=== PATIENT | female | born 1985 | race Caucasian/White ===

== ENCOUNTER 2017-01-06 11:56 | Inpatient (IN) | payer OTHER ==
[~2017-01-06] VITALS: Ht 172.7 cm; Wt 83.5 kg
[2017-01-06 13:30] VITALS: BP 119/67
[2017-01-06 13:41] LABS: BILIRUBIN NEGATIVE (NEGATIVE); BLOOD NEGATIVE (NEGATIVE); CLARITY SL CLOUDY (CLEAR); COLOR YELLOW (YELLOW); GLUCOSE NEGATIVE (NEGATIVE); KETONE TRACE (NEGATIVE); LEUKO ESTERASE 1+ (NEGATIVE); NITRITE NEGATIVE (NEGATIVE); SPECIFIC GRAVITY 1.025 (1.005-1.030); UROBILINOGEN 0.2 E.U./dl (0.2-1.0)
[2017-01-06 13:44] LABS: BASO % 0.6 % (0.0-1.0); EOS # 0.1 10*3/uL (0.0-0.4); EOS % 1.2 % (1.0-4.0); HEMATOCRIT 39.3 % (37.0-47.0); HEMOGLOBIN 13.2 g/dl (12.0-16.0); LYMPH # 2.3 10*3/uL (1.3-4.4); LYMPH % 32.3 % (27.0-41.0); MEAN CELL VOLUME 86.2 fl (81.0-99.0); MEAN CORPUSCULAR HGB 28.9 pg (27.0-31.0); MEAN CORPUSCULAR HGB CONC 33.6 g/dl (33.0-37.0); MEAN PLATELET VOLUME 10.6 fl (9.6-12.3); MONO # 0.5 10*3/uL (0.1-1.0); NEUT # 4.2 10*3/uL (2.3-7.9); NEUT % 58.5 % (47.0-73.0); PLATELET COUNT AUTOMATED 299 10*3/uL (130-400); RED BLOOD COUNT 4.56 10*6/uL (4.10-5.10); RED CELL DISTRI WIDTH 12.5 % (0-14.5); WHITE BLOOD COUNT 7.3 10*3/uL (4.8-10.8)
[2017-01-06 13:45] VITALS: BP 119/67
[2017-01-06 13:51] LABS: BACTERIA TRACE; URINE AMPHETAMINES > 1000 (1000ng/ml); URINE BARBITURATES < 200 (200ng/ml); URINE BENZODIAZEPINES < 200 (200ng/ml); URINE CANNABINOIDS (THC) < 50 (50ng/ml); URINE COCAINE < 300 (300ng/ml); URINE METHADONE < 300 (300ng/ml); URINE OPIATES < 300 (300ng/ml)
--- NOTE | 2017-01-06 13:55 | NUR ---
PATIENT GIVEN ROBAXEN, REQUIP AND MOTRIN FOR PAIN AND RESTLESSNESS PER PT REQUEST. PATIENT WAS ALSO GIVEN ZOFRAN FOR NAUSEA. WILL CONTINUE TO MONITOR AND REASSESS.
[2017-01-06 14:01] LABS: URINE PHENCYCLIDINE < 25 (25ng/ml)
[2017-01-06 14:04] LABS: ALBUMIN 3.5 gm/dl (3.1-4.5); ALKALINE PHOSPHATASE 113 U/L (45-117); BUN 7 mg/dl (7-24); CHLORIDE 107 mmol/L (98-107); CREATININE 0.57 mg/dL (0.55-1.02); POTASSIUM 4.5 mmol/L (3.5-5.1); SGOT/AST 21 IU/L (3-35); SGPT/ALT 29 U/L (12-78); SODIUM 139 mmol/L (136-145); TOTAL PROTEIN 7.5 gm/dL (6.4-8.2)
[2017-01-06 14:06] LABS: ETHYL ALCOHOL < 3.0 mg/dl (<3)
[2017-01-06 14:07] LABS: BETA-HCG, QUANT < 1.0 mIU/mL (1-3)
[2017-01-06] MEDS ORDERED: NEURONTIN300 MG PO (14:15)
[2017-01-06] MEDS ORDERED: OMEPRAZOLE40 MG PO (14:16)
[2017-01-06] MEDS ORDERED: ABILIFY10 MG PO (14:16)
--- NOTE | 2017-01-06 14:21 | NUR ---
31 year old FEMALE admitted to room # 518 for stabilization. 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 Compliant with admission procedure. Patient denies any anxiety, HAD MULTIPLE CRYING OUTBURSTS, HAS DULL, ACHY PAIN THROUGHOUT HER BODY, HAS NAUSEA WITHOUT VOMITING, unable to focus eyes on nurse during interview. See assessment forms for additional information about patient status.
--- NOTE | 2017-01-06 14:39 | NUR ---
UPON REASSESSMENT. PATIENT IS AT EASE AND ABLE TO FALL ASLEEP WITHOUT ANY ISSUES. NO FURTHER REQUESTS AT THIS TIME. WILL CONTINUE TO MONITOR.
--- NOTE | 2017-01-06 14:54 | NUR ---
MEDICATED WITH SUBUTEX SUBLINGUAL PER ORDER, SEE EMAR. FOR WITHDRAWAL SYMPTOMS. CALL LIGHT IN REACH.
[2017-01-06 16:00] VITALS: BP 107/56
--- NOTE | 2017-01-06 16:06 | NUR ---
PATIENT IS RESTING QUIETLY IN BED. PATIENT HOB IS ELEVATED AT 30 DEGREES, AND PATIENT DENIES ANY DISCOMFORT OR PAIN AT THIS TIME. PATIENT DENIES HAVING NAUSEA AND IS COOPERATIVE DURING ASSESSMENT. CALL LIGHT SYSTEM AND ORDERING FOOD HAS BEEN EXPLAINED TO THE PATIENT. SEE SHIFT ASSESSMENT. CALL LIGHT IS WITHIN REACH
--- NOTE | 2017-01-06 18:04 | NUR ---
SPOKE WITH ABOUT CHANGING NICODERM PATCH TO INHALERS. NO OTHER INSTRUCTIONS AT THIS TIME.
--- NOTE | 2017-01-06 18:22 | NUR ---
PATIENT IS UP AND AMBULATING. PATIENT DENIES ANY PAIN OR DISCOMFORT AT THIS TIME AND SAYS THEY ARE FEELING MUCH BETTER. PATIENT IS ON THE SUBUTEX TAPER AND HAS HAD NO S&S OF DT'S. SEE SHIFT ASSESSMENT. PATIENT WAS REORIENTED TO THE ROOM AND HAS MORE PROACTIVE IN THEIR CARE THE DAY HAS PROGRESSED. CALL LIGHT SYSTEM REINFORCED.
[2017-01-06 20:00] VITALS: BP 116/57
[2017-01-07] VITALS: BP 103/54
--- NOTE | 2017-01-07 02:05 | NUR ---
PATIENT MEDICATED WITH TRAZODONE FOR INSOMNIA AND ZOFRAN FOR NAUSEA AT 2122 WITH EFFECTIVE RESULTS NOTED. NO SIGNS OR SYMPTOMS OF DISTRESS NOTED AT THIS TIME. AROUSES TO VERBAL STIMULI. WILL CONTINUE TO MONITOR. CALL LIGHT IN REACH.
[2017-01-07 04:00] VITALS: BP 105/54
[2017-01-07 06:10] LABS: HEPATITIS B SURFACE AG Negative (Negative); HEPATITIS C VIRUS ANTIBODY <0.1 s/co (0.0-0.9); HIV 1+2 AB + HIV1 P24 AG Non Reactive (Non Reactive)
[2017-01-07 07:59] VITALS: BP 97/55
--- NOTE | 2017-01-07 08:20 | NUR ---
PT RESTING IN BED. RESP-EASY AND REGULAR. MEDICATED WITH REQUIP FOR RESTLESS LEGS AND BENTYL FOR ABDOMINAL CRAMPING AND ROBAXIN FOR MUSCLE CRAMPS PO PER PRN ORDER, SEE EMAR. CALL LIGHT IN REACH. SEE SHIFT ASSESSMENT.
--- NOTE | 2017-01-07 09:20 | NUR ---
Patient resting. Responding to scheduled medications with fewer complaints of pain and anxiety. CALL LIGHT IN REACH.
--- NOTE | 2017-01-07 09:31 | NUR ---
this client scored a 9 on the suicide risk, with no voiced suicidal thoughts or plans, she is here for detox from opiates, she is a scored low risk for suicide and does not require any intervention for mental health at this time.
[2017-01-07 11:50] VITALS: BP 96/51
--- NOTE | 2017-01-07 13:00 | NUR ---
TOLERATED ROUTINE SUBUTEX FOR WITHDRAWAL SYMPTOMS. WILL CON'T TO MONITOR. CALL LIGHT IN REACH.
--- NOTE | 2017-01-07 14:00 | NUR ---
Patient resting. Responding to scheduled medications with fewer complaints of pain and anxiety.
[2017-01-07 16:00] VITALS: BP 106/52
--- NOTE | 2017-01-07 16:00 | NUR ---
PT RESTING IN BED. NO C/O AT THIS TIME. REFUSES THE NEED FOR ANY MEDICATIONS AT THIS TIME. CALL LIGHT IN REACH.
[2017-01-07 20:00] VITALS: BP 104/56
[2017-01-08] VITALS: BP 95/42
[2017-01-08 08:00] VITALS: BP 95/51
--- NOTE | 2017-01-08 10:40 | NUR ---
VISTARIL/ROBAXIN FOR S/S WITHDRAWAL
--- NOTE | 2017-01-08 11:55 | NUR ---
Nutritional Support Services Note: No evidence of malnutrition noted. Appetite is good for meals. No weight loss noted. Ht.5'8 Wt.184# IBW 130-150. Labs are all wnl. Will follow if needed. Trish Lin
[2017-01-08 16:00] VITALS: BP 107/58
--- NOTE | 2017-01-08 16:29 | NUR ---
Patient was giving referrals to both inpatient and outpatient facilities. Joslyn Gregg B.A. [employer] Machine Operator
[2017-01-08 20:00] VITALS: BP 92/43
--- NOTE | 2017-01-08 21:54 | NUR ---
PATIENT MEDICATED WITH SENNAKOT PER PRN ORDER FOR C/O CONSTIPATION. SEE EMAR. REINFORCED USE OF CALL LIGHT
--- NOTE | 2017-01-08 22:00 | NUR ---
PATIENT MEDICATED WITH TRAZODONE PER PRN ORDER FOR INABILITY TO SLEEP. SEE EMAR. REINFORCED USE OF CALL LIGHT.
[2017-01-09] VITALS: BP 115/52
[2017-01-09 08:00] VITALS: BP 106/62
--- NOTE | 2017-01-09 09:58 | NUR ---
PT AWAITING DISCHARGE
[2017-01-09] MEDS ORDERED: ZOFRAN 4 MG ED2 TAB PO (10:42)
[2017-01-09] MEDS ORDERED: ATARAX,VISTARIL50 MG PO (10:42)
--- NOTE | 2017-01-09 10:52 | NUR ---
DISCHARGE INSTRUCTIONS GIVEN TO PT AND SHE VERBALIZED GOOD UNDERSTANDING
== END 2017-01-09 12:03 | disposition home or self-care (01) | DRG 897 ==
LOC: 5E 11:56
PROVIDERS: Internal Medicine Nephrology; ADMIT Internal Medicine
DX: F11.23 Opioid dependence with withdrawal (principal); E66.3 Overweight; G25.81 Restless legs syndrome; F15.10 Other stimulant abuse, uncomplicated; F17.210 Nicotine dependence, cigarettes, uncomplicated; Z86.59 Personal history of other mental and behavioral disorders; Z71.6 Tobacco abuse counseling; Z87.898 Personal history of other specified conditions; Z79.899 Other long term (current) drug therapy; Z68.28 Body mass index [BMI] 28.0-28.9, adult; G40.909 Epilepsy, unspecified, not intractable, without status epilepticus